=== PATIENT | female | born 1985 | race Caucasian/White ===

== ENCOUNTER 2020-11-25 04:26 | Inpatient (IN) | payer BC ==
[2020-11-25] MEDS ORDERED: Betamethasone Acetate/Betamethasone Sod Phosphate 30 MG/5 ML MDV ONE (05:53)
[2020-11-25] MEDS ORDERED: Citric Acid/Sodium Citrate Solution 30 ML Cup PO ONE (05:54)
[2020-11-25] MEDS ORDERED: Sodium Chloride 0.9% 10 ML Syringe FLUSH PRN (05:54)
[2020-11-25] MEDS ORDERED: Metoclopramide 10 MG/2 ML SDV IVPUSH ONE (05:54)
[2020-11-25] MEDS: Lactated Ringers 1,000 ML IV SCH ×2 (06:00→09:49)
[2020-11-25] MEDS ORDERED: Citric Acid/Sodium Citrate Solution 30 ML Cup ONE (06:01)
[2020-11-25] MEDS ORDERED: Metoclopramide 10 MG/2 ML SDV ONE (06:01)
[2020-11-25] MEDS ORDERED: Bupivacaine 0.5% 30 ML SDV ONE (06:04)
--- NOTE | 2020-11-25 06:08 | PCM.PREANE ---
Preanesthetic Assessment - Procedure Proposed Procedure: - Anesthesia/Transfusion/Family Hx Anesthesia History: No Prior Anesthesia Family History of Anesthesia Reaction: No Transfusion History: No Prior Transfusion(s) Intubation History: Unknown - Review of Systems General: No Symptoms Pulmonary: No Symptoms Cardiovascular: No Symptoms Gastrointestinal: No Symptoms Neurological: No Symptoms Other: Reports: None - Physical Assessment NPO Status Date: 11/24/20 NPO Status Time: 20:00 Vital Signs: 133/70 HR 120 RR 18 99.7 99% Height: 1.7 m Weight: 129.727 kg ASA Class: 3E Mental Status: Alert & Oriented x3 Dentition: Reports: Normal Dentition, Caries Thyro-Mental Finger Breadths: 3 Mouth Opening Finger Breadths: 3 ROM/Head Extension: Full Lungs: Clear to Auscultation, Normal Respiratory Effort Cardiovascular: Regular Rate, Regular Rhythm - Allergies Allergies/Adverse Reactions: Allergies Allergy/AdvReac Type Severity Reaction Status Date / Time amoxicillin Allergy Anaphylactic Verified 11/25/20 06:01 Shock - Blood Blood Available: Yes Product(s) Available: PRBC - Anesthesia Plan Pre-Op Medication Ordered: Other - Acknowledgements Anesthesia Type Planned: General Anesthesia Pt an Appropriate Candidate for the Planned Anesthesia: Yes Alternatives and Risks of Anesthesia Discussed w Pt/Guardian: Yes Pt/Guardian Understands and Agrees with Anesthesia Plan: Yes PreAnesthesia Questionnaire HEENT History: Reports: Impaired Vision Cardiovascular History: Reports: None Respiratory History: Reports: None Gastrointestinal History: Reports: GERD Genitourinary History: Reports: None 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: Neurological History: Reports: None Psychiatric History: Reports: None Endocrine/Metabolic History: Reports: Diabetes, Type II, Obesity/BMI 30+ Other Endocrine/Metabolic History: Patient placed on metformin Immunologic History: Reports: None Oncologic (Cancer) History: Reports: None Dermatologic History: Reports: None - Infectious Disease History Infectious Disease History: Reports: None - SUBSTANCE USE Tobacco Use Status *Q: Former Tobacco User Tobacco Use Within Last Twelve Months: No Second Hand Smoke Exposure: No Days Per Week of Alcohol Use: 0 Number of Drinks Per Day: 0 Total Drinks Per Week: 0 Recreational Drug Use History: No - CURRENT (IN HOUSE) MEDS Current Meds: Current Medications Citric Acid/Sodium Citrate (Citric Acid/Sodium Citrate Solution 30 Ml Cup) 30 ml PO ONETIME ONE Stop: 11/25/20 05:55 Lactated Ringer's (Ringers, Lactated) 1,000 mls @ 125 mls/hr IV ASDIRECTED RICH Metoclopramide HCl (Metoclopramide 10 Mg/2 Ml Sdv) 10 mg IVPUSH ONETIME ONE Stop: 11/25/20 05:55 Sodium Chloride (Sodium Chloride 0.9% 10 Ml Syringe) 10 ml FLUSH ASDIRECTED PRN PRN Reason: Keep Vein Open Discontinued Medications Betamethasone Acet/Betameth SodPhos (Betamethasone Acetate/Betamethasone Sod Phosphate 30 Mg/5 Ml Mdv) Confirm Administered Dose 30 mg .ROUTE .STK-MED ONE Stop: 11/25/20 05:54
--- NOTE | 2020-11-25 06:13 | PCM.LDHP ---
L&D History of Present Illness - General Date of Service: 11/25/20 Admit Problem/Dx: Patient Status Order with Admit Dx/Problem 11/25/20 04:40 Patient Status [ADT] Routine Admission Diagnosis/Problem Admission Diagnosis/Problem Vaginal bleeding during , antepartum Source of Information: Patient History Limitations: Reports: No Limitations - History of Present Illness Introduction:: 34 year old female here with advanced cervical dilation and twins. PNC with [facility] without complications other than twins, obesity and elevated one hour with normal three hour. Timing/Duration: Reports: seconds: - Related Data Allergies/Adverse Reactions: Allergies Allergy/AdvReac Type Severity Reaction Status Date / Time amoxicillin Allergy Anaphylactic Verified 11/25/20 06:01 Shock Past Medical History - Past Health History Medical/Surgical History: Denies Medical/Surgical History H&P Review of Systems - Review of Systems: Review Of Systems: See Below General: Reports: No Symptoms HEENT: Reports: No Symptoms Pulmonary: Reports: No Symptoms Cardiovascular: Reports: No Symptoms Gastrointestinal: Reports: No Symptoms Genitourinary: Reports: No Symptoms Musculoskeletal: Reports: No Symptoms Skin: Reports: No Symptoms Psychiatric: Reports: No Symptoms Neurological: Reports: No Symptoms Hematologic/Lymphatic: Reports: No Symptoms Immunologic: Reports: No Symptoms L&D Exam - Exam Exam: See Below - Vital Signs Weight: 129.727 kg - OB Specific Contraction Intensity: Irritability Movement: Active Heart Tones: Present Heart Rate (FHR) Variability: Moderate (6-25 bpm) Presentation: transverse - Exam General: Alert, Oriented HEENT: PERRLA, Conjunctiva Clear, EACs Clear, EOMI, Hearing Intact, Mucosa Moist & [place], Nares Patent, Normal Nasal Septum, Posterior Pharynx Clear, TMs Clear Neck: Supple, Trachea Midline Lungs: Clear to Auscultation, Normal Respiratory Effort Cardiovascular: Regular Rate, Regular Rhythm Rectal Exam: Normal Exam Genitourinary: Normal speculum exam (on speculum exam bulging bag of water with midportion (transverse) visable through bag) Back Exam: Normal Inspection, Full Range of Motion Extremities: Normal Inspection, Normal Range of Motion, Non-Tender, No Pedal Edema, Normal Capillary Refill Skin: Warm, Dry, Intact Neurological: Cranial Nerves Intact, Reflexes Equal Bilateral Psychiatric: Alert, Normal Affect, Normal Mood Problem List Initiated/Reviewed/Updated: Yes Orders Last 24hrs: Active Orders 24 hr Category Date Time Status Patient Status [ADT] Routine ADT 11/25/20 04:40 Active Communication Order [RC] ROUTINE Care 11/25/20 05:55 Ordered Heart Tones [RC] PER UNIT ROUTINE Care 11/25/20 05:55 Ordered Non Stress Test [RC] PER UNIT ROUTINE Care 11/25/20 04:40 Active Non Stress Test [RC] PER UNIT ROUTINE Care 11/25/20 05:55 Ordered Peripheral IV Care [RC] . DIRECTED Care 11/25/20 05:56 Ordered Procedure Site Prep Instruct [RC] ASDIRECTED Care 11/25/20 05:55 Ordered Verify Patient Consent Obtain [RC] PER UNIT ROUTINE Care 11/25/20 05:55 Ordered Vital Signs [RC] PER UNIT ROUTINE Care 11/25/20 04:40 Active Vital Signs [RC] PFP Care 11/25/20 05:55 Ordered CBC W/O DIFF,HEMOGRAM [HEME] Stat Lab 11/25/20 05:54 Ordered CORONAVIRUS COVID-19 LILY [MOLEC] Stat Lab 11/25/20 05:58 Ordered DRUG SCREEN, URINE [URCHEM] Stat Lab 11/25/20 05:54 Ordered RAPID PLASMA REAGIN,RPR [CHEM] Routine Lab 11/25/20 05:55 Ordered TYPE AND SCREEN [BBK] Routine Lab 11/25/20 05:55 Ordered Lactated Ringers @ 125 MLS/HR(1000ml) Med 11/25/20 06:00 Ordered Lactated Ringers [Ringers, Lactated] 1,000 ml IV ASDIRECTED Sodium Chloride 0.9% [Saline Flush] Med 11/25/20 05:54 Ordered 10 ml FLUSH ASDIRECTED PRN Peripheral IV Insertion Adult [OM.PC] Routine Oth 11/25/20 05:55 Ordered Schedule Procedure [COMM] Per Unit Routine Oth 11/25/20 05:55 Ordered Resuscitation Status Routine Resus Stat 11/25/20 04:40 Ordered Medication Orders Lactated Ringer's (Ringers, Lactated) 1,000 mls @ 125 mls/hr IV ASDIRECTED RICH Sodium Chloride (Sodium Chloride 0.9% 10 Ml Syringe) 10 ml FLUSH ASDIRECTED PRN PRN Reason: Keep Vein Open Assessment/Plan Comment:: labor. GBS collected. Covid pending Labs pending. Proceed with for malpresentation. RBA discussed with patient who voices understanding. INitially want transport but discussed with them and actually called at their request to speak with [facility] who refused to accept transport as I had expected.
[2020-11-25] MEDS ORDERED: Betamethasone Acetate/Betamethasone Sod Phosphate 30 MG/5 ML MDV IM ONE (06:16)
[2020-11-25] MEDS ORDERED: Propofol 200 MG/20 ML SDV ONE (06:20)
[2020-11-25] MEDS ORDERED: Succinylcholine/Sod PF 100 MG/5 ML SYRINGE IV ONE (06:21)
[2020-11-25] MEDS ORDERED: ceFAZolin 1 GM Vial ONE ×2 (06:31→06:33)
[2020-11-25] MEDS ORDERED: fentaNYL 250 MCG/5 ML SDV ONE (06:38)
[2020-11-25] MEDS ORDERED: Albuterol 6.7 GM Inhaler INH ONE (06:45)
[2020-11-25] MEDS ORDERED: Ondansetron 4 MG/2 ML SDV ONE (06:45)
[2020-11-25] MEDS ORDERED: Oxytocin 10 Units/1 ML SDV ONE (06:46)
[2020-11-25] MEDS ORDERED: HYDROmorphone 0.5 MG/0.5 ML Syringe ONE (06:48)
[2020-11-25] MEDS ORDERED: Lactated Ringers 1,000 ML ONE (06:55)
[2020-11-25] MEDS ORDERED: Lactated Ringers 500 ML ONE (06:55)
[2020-11-25] MEDS ORDERED: Ketorolac 30 MG/ML SDV ONE (07:03)
[2020-11-25] MEDS ORDERED: fentaNYL 100 MCG/2 ML SDV ONE (07:14)
[2020-11-25] MEDS ORDERED: HYDROmorphone 0.5 MG/0.5 ML Syringe IVPUSH PRN (07:29)
[2020-11-25] MEDS ORDERED: fentaNYL 100 MCG/2 ML SDV IVPUSH PRN (07:29)
[2020-11-25] MEDS ORDERED: Ondansetron 4 MG/2 ML SDV IVPUSH PRN (07:29)
--- NOTE | 2020-11-25 07:31 | PCM.POSTAN ---
POST ANESTHESIA ASSESSMENT - MENTAL STATUS Mental Status: Alert, Oriented - RESPIRATORY Respiratory Status: Respiratory Rate WNL, Airway Patent, O2 Saturation Stable, Supplemental Oxygen - CARDIOVASCULAR CV Status: Pulse Rate WNL, Blood Pressure Stable - GASTROINTESTINAL GI Status: No Symptoms - PAIN Pain Score: 5 - POST OP HYDRATION Hydration Status: Adequate & Stable
[2020-11-25] MEDS ORDERED: ePHEDrine 50 MG/ML SDV IVPUSH PRN (08:52)
[2020-11-25] MEDS ORDERED: diphenhydrAMINE 50 MG/ML SDV IVPUSH PRN (08:52)
[2020-11-25] MEDS ORDERED: Dextrose 5%-Lactated Ringers 1,000 ML IV SCH (08:52)
[2020-11-25] MEDS ORDERED: Naloxone 0.4 MG/ML SDV IVPUSH PRN (08:52)
[2020-11-25] MEDS: Acetaminophen/oxyCODONE 325-5 MG Tab PO PRN ×3 (10:59→21:37)
[2020-11-25] MEDS: Ibuprofen 600 MG Tab PO PRN ×2 (13:35→20:15)
[2020-11-26] MEDS: Ibuprofen 600 MG Tab PO PRN ×3 (03:38→21:31)
[2020-11-26] MEDS: Acetaminophen/oxyCODONE 325-5 MG Tab PO PRN ×4 (06:05→23:51)
[2020-11-26] MEDS: Docusate Sodium 100 MG Cap PO PRN ×2 (10:54→23:51)
--- NOTE | 2020-11-26 11:34 | PCM.SN.2 ---
- Free Text/Narrative Note: Post Operative Progress Note POD #1 Subjective: Doing well overall. Ambulating slowly without difficulty. Reports that she does have increased amounts of pain with activity. Lochia minimal. Angel catheter was removed this morning and she has been able to urinate without difficulty. She reports that she is having some bladder spasms and will void small amounts when she does use the restroom. Passing flatus and feels rectal pressure like she has to have a bowel movement but is unable to pass any stool. Tolerating small amounts of regular diet without nausea or vomiting. She states that food does not seem appetizing at this time. Pain controlled with oral medications. Pumping small amounts of breastmilk with minimal difficulty. She states that the infants are doing well in the NICU in [place] and that they are progressing Objective: Vitals: Vital Signs - 24 hr 11/25/20 11/25/20 11/25/20 13:37 15:42 20:21 Temperature 37.1 C 36.9 C 36.8 C Pulse, 107 H 96 104 H Peripheral Respiratory 16 16 Rate Blood Pressure 106/60 114/66 112/77 O2 Sat by Pulse 95 95 93 L Oximetry 11/25/20 11/26/20 23:12 03:40 Temperature 36.8 C 36.8 C Pulse, 89 96 Peripheral Respiratory 14 15 Rate Blood Pressure 125/65 125/67 O2 Sat by Pulse 93 L 92 L Oximetry Physical Exam General: Alert and oriented, no acute distress Lungs: Clear to auscultation bilaterally Heart: Regular rate and rhythm Abdomen: Soft, minimal appropriate tenderness, non-distended, fundus midline, nontender and at the umbilicus Incision: Clean, dry and intact, no erythema, bleeding or drainage with Steri- Strips in place Extremities: Trace edema in bilateral lower extremities to ankles, no calf tenderness bilaterally Labs: Laboratory Results - last 24 hr 11/25/20 11/26/20 Range/Units 06:08 05:31 WBC 10.57 H (3.98-10.04) K/mm3 RBC 2.92 L (3.98-5.22) M/mm3 Hgb 8.7 L D (11.2-15.7) gm/dl Hct 28.0 L (34.1-44.9) % MCV 95.9 H (79.4-94.8) fl MCH 29.8 (25.6-32.2) pg MCHC 31.1 L (32.2-35.5) g/dl RDW Std Deviation 48.9 H (36.4-46.3) fL Plt Count 226 (182-369) K/mm3 MPV 9.7 (9.4-12.3) fl Neut % (Auto) 71.7 H (34.0-71.1) % Lymph % (Auto) 20.9 (19.3-51.7) % [place] % (Auto) 6.8 (4.7-12.5) % Eos % (Auto) 0.3 L (0.7-5.8) Baso % (Auto) 0.1 (0.1-1.2) % Neut # (Auto) 7.58 H (1.56-6.13) K/mm3 Lymph # (Auto) 2.21 (1.18-3.74) K/mm3 [place] # (Auto) 0.72 H (0.24-0.36) K/mm3 Eos # (Auto) 0.03 L (0.04-0.36) K/mm3 Baso # (Auto) 0.01 (0.01-0.08) K/mm3 RPR Non-reactive (NONREACTIVE) ASSESSMENT: 34-year-old female -1-0-4 s/p primary section POD #1 for transverse presentation of presenting twin, complicated by labor at 29 weeks gestational age, obesity and elevated 1 hour glucose tolerance test with normal 3-hour glucose tolerance test PLAN: Doing well overall Pumping breastmilk with minimal production of breastmilk at this time. Assist as needed Incision healing well. Continue to keep clean and dry. Lochia minimal. Continue to monitor for appropriate lochia. Continue routine post-operative care Start Colace 100 mg twice daily to help with constipation Monitor urinary symptoms due to bladder spasms. Suspect that this is due to irritation from the Angel catheter being in place No significant evidence of severe anemia due to acute blood loss from section. Patient has hemoglobin of 8.7 this morning and is tolerating this well Anticipate discharge home tomorrow Fito Cruz MD 11:33 AM 11/26/2020
[2020-11-27] MEDS: Acetaminophen/oxyCODONE 325-5 MG Tab PO PRN ×4 (06:04→22:53)
[2020-11-27] MEDS: Ibuprofen 600 MG Tab PO PRN ×2 (13:31→20:35)
[2020-11-27] MEDS: Docusate Sodium 100 MG Cap PO PRN (20:35)
[2020-11-28] MEDS: Ibuprofen 600 MG Tab PO PRN ×2 (05:16→11:50)
--- NOTE | 2020-11-28 08:47 | PCM.PNPP ---
- General Info Date of Service: 11/27/20 Subjective Update: Doing well. Urinary retention over yesterday. Will remove matt this am and see if can void Functional Status: Reports: Pain Controlled - Review of Systems General: Reports: No Symptoms HEENT: Reports: No Symptoms Pulmonary: Reports: No Symptoms Cardiovascular: Reports: No Symptoms Gastrointestinal: Reports: No Symptoms Genitourinary: Reports: No Symptoms Musculoskeletal: Reports: No Symptoms Skin: Reports: No Symptoms Neurological: Reports: No Symptoms Psychiatric: Reports: No Symptoms - General Info Date of Service: 11/27/20 - Patient Data Vital Signs - Most Recent: Last Vital Signs Temp 36.7 C 11/28/20 05:03 Pulse 74 11/28/20 05:03 Resp 16 11/28/20 05:03 BP 107/58 L 11/28/20 05:03 Pulse Ox 97 11/28/20 05:03 Weight - Most Recent: 129.727 kg I&O - Last 24 Hours: Intake & Output 11/27/20 11/28/20 11/28/20 22:59 06:59 14:59 Output Total 100 300 Balance -100 -300 Med Orders - Current: Current Medications Diphenhydramine HCl (Diphenhydramine 50 Mg/Ml Sdv) 25 mg IVPUSH Q6H PRN PRN Reason: Itching or Nausea Docusate Sodium (Docusate Sodium 100 Mg Cap) 100 mg PO BID PRN PRN Reason: Constipation Last Admin: 11/27/20 20:35 Dose: 100 mg Documented by: Ephedrine Sulfate (Ephedrine 50 Mg/Ml Sdv) 5 mg IVPUSH SEECOMMENT PRN PRN Reason: Other Ibuprofen (Ibuprofen 600 Mg Tab) 600 mg PO Q6H PRN PRN Reason: mild pain or fever Last Admin: 11/28/20 05:16 Dose: 600 mg Documented by: Naloxone HCl (Naloxone 0.4 Mg/Ml Sdv) 0.1 mg IVPUSH SEECOMMENT PRN PRN Reason: Respiratory Depression Oxycodone/Acetaminophen (Acetaminophen/Oxycodone 325-5 Mg Tab) 1 tab PO Q4H PRN PRN Reason: Pain (moderate 4-6) Last Admin: 11/27/20 22:53 Dose: 1 tab Documented by: Oxycodone/Acetaminophen (Acetaminophen/Oxycodone 325-5 Mg Tab) 2 tab PO Q4H PRN PRN Reason: Pain (severe 7-10) Last Admin: 11/26/20 17:44 Dose: 2 tab Documented by: Discontinued Medications Albuterol (Albuterol 6.7 Gm Inhaler) Confirm Administered Dose 6.7 gm INH .STK- MED ONE Stop: 11/25/20 06:46 Betamethasone Acet/Betameth SodPhos (Betamethasone Acetate/Betamethasone Sod Phosphate 30 Mg/5 Ml Mdv) Confirm Administered Dose 30 mg .ROUTE .STK-MED ONE Stop: 11/25/20 05:54 Last Admin: 11/25/20 06:10 Dose: 12 mg Documented by: Betamethasone Acet/Betameth SodPhos (Betamethasone Acetate/Betamethasone Sod Phosphate 30 Mg/5 Ml Mdv) 12 mg IM ONETIME ONE Stop: 11/25/20 06:17 Last Admin: 11/25/20 09:11 Dose: Not Given Documented by: Bupivacaine HCl (Bupivacaine 0.5% 30 Ml Sdv) Confirm Administered Dose 30 ml .ROUTE .STK-MED ONE Stop: 11/25/20 06:05 Cefazolin Sodium (Cefazolin 1 Gm Vial) Confirm Administered Dose 2 gm .ROUTE .STK-MED ONE Stop: 11/25/20 06:32 Cefazolin Sodium (Cefazolin 1 Gm Vial) Confirm Administered Dose 1 gm .ROUTE .STK-MED ONE Stop: 11/25/20 06:34 Citric Acid/Sodium Citrate (Citric Acid/Sodium Citrate Solution 30 Ml Cup) 30 ml PO ONETIME ONE Stop: 11/25/20 05:55 Last Admin: 11/25/20 06:09 Dose: 30 ml Documented by: Citric Acid/Sodium Citrate (Citric Acid/Sodium Citrate Solution 30 Ml Cup) Confirm Administered Dose 30 ml .ROUTE .STK-MED ONE Stop: 11/25/20 06:02 Last Admin: 11/25/20 06:10 Dose: Not Given Documented by: Fentanyl (Fentanyl 250 Mcg/5 Ml Sdv) Confirm Administered Dose 250 mcg .ROUTE .STK-MED ONE Stop: 11/25/20 06:39 Fentanyl (Fentanyl 100 Mcg/2 Ml Sdv) Confirm Administered Dose 100 mcg .ROUTE .STK-MED ONE Stop: 11/25/20 07:15 Fentanyl (Fentanyl 100 Mcg/2 Ml Sdv) 50 mcg IVPUSH Q5M PRN PRN Reason: Pain Stop: 11/25/20 12:00 Hydromorphone HCl (Hydromorphone 0.5 Mg/0.5 Ml Syringe) Confirm Administered Dose 0.5 mg .ROUTE .STK-MED ONE Stop: 11/25/20 06:49 Hydromorphone HCl (Hydromorphone 0.5 Mg/0.5 Ml Syringe) 0.5 mg IVPUSH Q10M PRN PRN Reason: Pain (severe 7-10) Stop: 11/25/20 12:00 Last Admin: 11/25/20 07:54 Dose: 0.5 mg Documented by: Lactated Ringer's (Ringers, Lactated) 1,000 mls @ 125 mls/hr IV ASDIRECTED [facility] Last Admin: 11/25/20 09:49 Dose: 125 mls/hr Documented by: Lactated Ringer's (Ringers, Lactated) Confirm Administered Dose 1,000 mls @ as directed .ROUTE .STK-MED ONE Stop: 11/25/20 06:56 Lactated Ringer's (Ringers, Lactated) Confirm Administered Dose 500 mls @ as directed .ROUTE .STK-MED ONE Stop: 11/25/20 06:56 Dextrose/Lactated Ringer's (Dextrose 5%-Lactated Ringers) 1,000 mls @ 125 mls/hr IV ASDIRECTED [facility] Stop: 11/25/20 16:51 Ketorolac Tromethamine (Ketorolac 30 Mg/Ml Sdv) Confirm Administered Dose 30 mg .ROUTE .STK-MED ONE Stop: 11/25/20 07:04 Metoclopramide HCl (Metoclopramide 10 Mg/2 Ml Sdv) 10 mg IVPUSH ONETIME ONE Stop: 11/25/20 05:55 Last Admin: 11/25/20 06:09 Dose: 10 mg Documented by: Metoclopramide HCl (Metoclopramide 10 Mg/2 Ml Sdv) Confirm Administered Dose 10 mg .ROUTE .STK-MED ONE Stop: 11/25/20 06:02 Last Admin: 11/25/20 06:11 Dose: Not Given Documented by: Miscellaneous Medication (Phenylephrine Hcl In 0.9% Nacl 1 Mg/10 Ml Syringe) Confirm Administered Dose 1 mg .ROUTE .STK-MED ONE Stop: 11/25/20 06:52 Ondansetron HCl (Ondansetron 4 Mg/2 Ml Sdv) Confirm Administered Dose 4 mg .ROUTE .STK-MED ONE Stop: 11/25/20 06:46 Ondansetron HCl (Ondansetron 4 Mg/2 Ml Sdv) 4 mg IVPUSH ONETIME PRN PRN Reason: Nausea/Vomiting Stop: 11/25/20 12:00 Oxytocin (Oxytocin 10 Units/1 Ml Sdv) Confirm Administered Dose 10 unit .ROUTE .STK-MED ONE Stop: 11/25/20 06:47 Propofol (Propofol 200 Mg/20 Ml Sdv) Confirm Administered Dose 200 mg .ROUTE .STK-MED ONE Stop: 11/25/20 06:21 Sodium Chloride (Sodium Chloride 0.9% 10 Ml Syringe) 10 ml FLUSH ASDIRECTED PRN PRN Reason: Keep Vein Open - Interaction Support Person: - Recovery Exam Fundal Tone: Firm Fundal Level: 1 Fingerbreadths Below Umbilicus Fundal Placement: Midline Lochia Amount: Small Lochia Color: Rubra/Red Perineum Description: Intact, Minimal Bruising/Swelling Episiotomy/Laceration: None Bladder Status: Voiding Urinary Elimination: Indwelling Catheter - Exam General: Alert, Oriented HEENT: Pupils Equal Neck: Supple Lungs: Clear to Auscultation, Normal Respiratory Effort Cardiovascular: Regular Rate, Regular Rhythm GI/Abdominal Exam: Normal Bowel Sounds, Soft, Non-Tender, No Organomegaly, No Distention, No Abnormal Bruit, No Mass, Pelvis Stable Skin: Warm, Dry Neurological: No New Focal Deficit Psy/Mental Status: Alert, Normal Affect, Normal Mood - Problem List Review Problem List Initiated/Reviewed/Updated: Yes - My Orders Last 24 Hours: My Active Orders 11/27/20 10:18 Ready for Discharge [RC] PER UNIT ROUTINE 11/27/20 19:42 Urinary Catheter Assessment [RC] ASDIRECTED 11/27/20 19:45 Insert Urinary Catheter [OM.PC] Q24H - Assessment Assessment:: 1) Postop from for 29 week twins - doing well 2) urinary retention - matt in, removed for void trial and had 500+ so reinsert ed, trial again today.
--- NOTE | 2020-11-28 08:55 | PCM.DCSUM1 ---
Discharge Summary - Hospital Course Brief History: Admitted with advanced cervical dilation Diagnosis: Stroke: No - Discharge Data Discharge Date: 11/28/20 Discharge Disposition: Home, Self-Care 01 Condition: Good - Referral to Home Health Primary Care Physician: Mckinley Escobar MD - Patient Summary/Data Hospital Course: Admitted for for labor. Urinary retention. - Patient Instructions Diet: Usual Diet as Tolerated Activity: No Strenuous Activities Driving: May Drive Today Showering/Bathing: May Shower Notify Provider of: Fever, Increased Pain, Swelling and Redness, Drainage, Nausea and/or Vomiting - Discharge Plan *PRESCRIPTION DRUG MONITORING PROGRAM REVIEWED*: No *COPY OF PRESCRIPTION DRUG MONITORING REPORT IN PATIENT SHANNON: No Referrals: Mckinley Escobar MD [Primary Care Provider] - (Monday-Mon for void trial please) - Discharge Summary/Plan Comment DC Time >30 min.: No Total # of Minutes for Discharge Time: 29 - General Info Date of Service: 11/28/20 Functional Status: Reports: Pain Controlled - Review of Systems General: Reports: No Symptoms HEENT: Reports: No Symptoms Pulmonary: Reports: No Symptoms Cardiovascular: Reports: No Symptoms Gastrointestinal: Reports: No Symptoms Genitourinary: Reports: No Symptoms Musculoskeletal: Reports: No Symptoms Skin: Reports: No Symptoms Neurological: Reports: No Symptoms Psychiatric: Reports: No Symptoms - Patient Data Vitals - Most Recent: Last Vital Signs Temp 36.7 C 11/28/20 05:03 Pulse 74 11/28/20 05:03 Resp 16 11/28/20 05:03 BP 107/58 L 11/28/20 05:03 Pulse Ox 97 11/28/20 05:03 Weight - Most Recent: 129.727 kg I&O - Last 24 hours: Intake & Output 11/27/20 11/28/20 11/28/20 22:59 06:59 14:59 Output Total 100 300 Balance -100 -300 Med Orders - Current: Current Medications Diphenhydramine HCl (Diphenhydramine 50 Mg/Ml Sdv) 25 mg IVPUSH Q6H PRN PRN Reason: Itching or Nausea Docusate Sodium (Docusate Sodium 100 Mg Cap) 100 mg PO BID PRN PRN Reason: Constipation Last Admin: 11/27/20 20:35 Dose: 100 mg Documented by: Ephedrine Sulfate (Ephedrine 50 Mg/Ml Sdv) 5 mg IVPUSH SEECOMMENT PRN PRN Reason: Other Ibuprofen (Ibuprofen 600 Mg Tab) 600 mg PO Q6H PRN PRN Reason: mild pain or fever Last Admin: 11/28/20 05:16 Dose: 600 mg Documented by: Naloxone HCl (Naloxone 0.4 Mg/Ml Sdv) 0.1 mg IVPUSH SEECOMMENT PRN PRN Reason: Respiratory Depression Oxycodone/Acetaminophen (Acetaminophen/Oxycodone 325-5 Mg Tab) 1 tab PO Q4H PRN PRN Reason: Pain (moderate 4-6) Last Admin: 11/27/20 22:53 Dose: 1 tab Documented by: Oxycodone/Acetaminophen (Acetaminophen/Oxycodone 325-5 Mg Tab) 2 tab PO Q4H PRN PRN Reason: Pain (severe 7-10) Last Admin: 11/26/20 17:44 Dose: 2 tab Documented by: Discontinued Medications Albuterol (Albuterol 6.7 Gm Inhaler) Confirm Administered Dose 6.7 gm INH .STK- MED ONE Stop: 11/25/20 06:46 Betamethasone Acet/Betameth SodPhos (Betamethasone Acetate/Betamethasone Sod Phosphate 30 Mg/5 Ml Mdv) Confirm Administered Dose 30 mg .ROUTE .STK-MED ONE Stop: 11/25/20 05:54 Last Admin: 11/25/20 06:10 Dose: 12 mg Documented by: Betamethasone Acet/Betameth SodPhos (Betamethasone Acetate/Betamethasone Sod Phosphate 30 Mg/5 Ml Mdv) 12 mg IM ONETIME ONE Stop: 11/25/20 06:17 Last Admin: 11/25/20 09:11 Dose: Not Given Documented by: Bupivacaine HCl (Bupivacaine 0.5% 30 Ml Sdv) Confirm Administered Dose 30 ml .ROUTE .STK-MED ONE Stop: 11/25/20 06:05 Cefazolin Sodium (Cefazolin 1 Gm Vial) Confirm Administered Dose 2 gm .ROUTE .STK-MED ONE Stop: 11/25/20 06:32 Cefazolin Sodium (Cefazolin 1 Gm Vial) Confirm Administered Dose 1 gm .ROUTE .STK-MED ONE Stop: 11/25/20 06:34 Citric Acid/Sodium Citrate (Citric Acid/Sodium Citrate Solution 30 Ml Cup) 30 ml PO ONETIME ONE Stop: 11/25/20 05:55 Last Admin: 11/25/20 06:09 Dose: 30 ml Documented by: Citric Acid/Sodium Citrate (Citric Acid/Sodium Citrate Solution 30 Ml Cup) Confirm Administered Dose 30 ml .ROUTE .STK-MED ONE Stop: 11/25/20 06:02 Last Admin: 11/25/20 06:10 Dose: Not Given Documented by: Fentanyl (Fentanyl 250 Mcg/5 Ml Sdv) Confirm Administered Dose 250 mcg .ROUTE .STK-MED ONE Stop: 11/25/20 06:39 Fentanyl (Fentanyl 100 Mcg/2 Ml Sdv) Confirm Administered Dose 100 mcg .ROUTE .STK-MED ONE Stop: 11/25/20 07:15 Fentanyl (Fentanyl 100 Mcg/2 Ml Sdv) 50 mcg IVPUSH Q5M PRN PRN Reason: Pain Stop: 11/25/20 12:00 Hydromorphone HCl (Hydromorphone 0.5 Mg/0.5 Ml Syringe) Confirm Administered Dose 0.5 mg .ROUTE .STK-MED ONE Stop: 11/25/20 06:49 Hydromorphone HCl (Hydromorphone 0.5 Mg/0.5 Ml Syringe) 0.5 mg IVPUSH Q10M PRN PRN Reason: Pain (severe 7-10) Stop: 11/25/20 12:00 Last Admin: 11/25/20 07:54 Dose: 0.5 mg Documented by: Lactated Ringer's (Ringers, Lactated) 1,000 mls @ 125 mls/hr IV ASDIRECTED REPLACED BY [facility] Last Admin: 11/25/20 09:49 Dose: 125 mls/hr Documented by: Lactated Ringer's (Ringers, Lactated) Confirm Administered Dose 1,000 mls @ as directed .ROUTE .STK-MED ONE Stop: 11/25/20 06:56 Lactated Ringer's (Ringers, Lactated) Confirm Administered Dose 500 mls @ as directed .ROUTE .STK-MED ONE Stop: 11/25/20 06:56 Dextrose/Lactated Ringer's (Dextrose 5%-Lactated Ringers) 1,000 mls @ 125 mls/hr IV ASDIRECTED REPLACED BY [facility] Stop: 11/25/20 16:51 Ketorolac Tromethamine (Ketorolac 30 Mg/Ml Sdv) Confirm Administered Dose 30 mg .ROUTE .STK-MED ONE Stop: 11/25/20 07:04 Metoclopramide HCl (Metoclopramide 10 Mg/2 Ml Sdv) 10 mg IVPUSH ONETIME ONE Stop: 11/25/20 05:55 Last Admin: 11/25/20 06:09 Dose: 10 mg Documented by: Metoclopramide HCl (Metoclopramide 10 Mg/2 Ml Sdv) Confirm Administered Dose 10 mg .ROUTE .STK-MED ONE Stop: 11/25/20 06:02 Last Admin: 11/25/20 06:11 Dose: Not Given Documented by: Miscellaneous Medication (Phenylephrine Hcl In 0.9% Nacl 1 Mg/10 Ml Syringe) Confirm Administered Dose 1 mg .ROUTE .STK-MED ONE Stop: 11/25/20 06:52 Ondansetron HCl (Ondansetron 4 Mg/2 Ml Sdv) Confirm Administered Dose 4 mg .ROUTE .STK-MED ONE Stop: 11/25/20 06:46 Ondansetron HCl (Ondansetron 4 Mg/2 Ml Sdv) 4 mg IVPUSH ONETIME PRN PRN Reason: Nausea/Vomiting Stop: 11/25/20 12:00 Oxytocin (Oxytocin 10 Units/1 Ml Sdv) Confirm Administered Dose 10 unit .ROUTE .STK-MED ONE Stop: 11/25/20 06:47 Propofol (Propofol 200 Mg/20 Ml Sdv) Confirm Administered Dose 200 mg .ROUTE .STK-MED ONE Stop: 11/25/20 06:21 Sodium Chloride (Sodium Chloride 0.9% 10 Ml Syringe) 10 ml FLUSH ASDIRECTED PRN PRN Reason: Keep Vein Open - Exam General: Reports: Alert, Oriented HEENT: Reports: Pupils Equal, Pupils Reactive, EOMI, Mucous Membr. Moist/[place] Neck: Reports: Supple Lungs: Reports: Clear to Auscultation, Normal Respiratory Effort Cardiovascular: Reports: Regular Rate, Regular Rhythm GI/Abdominal Exam: Normal Bowel Sounds, Soft, Non-Tender, No Organomegaly, No Distention, No Abnormal Bruit, No Mass, Pelvis Stable Rectal (Female) Exam: Normal Exam Back Exam: Reports: Normal Inspection, Full Range of Motion Extremities: Normal Inspection, Normal Range of Motion, Non-Tender, No Pedal Edema, Normal Capillary Refill Skin: Reports: Warm, Dry, Intact Wound/Incisions: Reports: Healing Well Neurological: Reports: No New Focal Deficit Psy/Mental Status: Reports: Alert, Normal Affect, Normal Mood
[2020-11-28] MEDS ORDERED: Polyethylene Glycol 3350 Powder 17 GM Packet PO ONE (09:19)
[2020-11-28] MEDS: Acetaminophen/oxyCODONE 325-5 MG Tab PO PRN (10:21)
[2020-11-28] MEDS ORDERED: Measles, Mumps & Rubella Vaccine 0.5 ML SDV SUBCUT ONE (10:59)
--- NOTE | 2020-12-17 14:39 | PCM.OPNOTE ---
- General Post-Op/Procedure Note Date of Surgery/Procedure: 11/25/20 Operative Procedure(s): primary section Findings: breech twins Pre Op Diagnosis: labor, twins, breech Post-Op Diagnosis: Same Anesthesia Technique: General ET Tube Primary Surgeon: Florencia Barillas Sales Clerk Supervisor: Arthur Jenkins Complications: None Condition: Good Free Text/Narrative:: he patient was taken to the operating room where GETA was initiated. The patient was prepped and draped in the usual sterile fashion in the dorsal supine position with a leftward tilt. A Pfannenstiel skin incision was made with the scalpel and carried through to the underlying layer of fascia. The fascia was incised and entered bluntly. The peritoneum was entered bluntly; this incision was extended superiorly and inferiorly with good visualization of the bladder. The bladder blade was inserted. The vesicouterine peritoneum was identified and entered sharply using Metzenbaum scissors. This incision was extended laterally and the bladder flap was created digitally. The bladder blade was reinserted. The lower uterine segment was incised in a transverse fashion using the scalpel and with digital traction. Clear fluid was noted. The infants were delivered with usual breech maneuvers. The uterus was exteriorized and cleared of all clots and debris. The uterine incision was repaired in 2 layers using 0 monocryl. Hemostasis was visualized. Hemostasis was visualized bilaterally. The uterus was returned to the abdomen. The uterine incision was reexamined and it was noted to be hemostatic. The pelvis was copiously irrigated. The fascia was closed with 1 PDS suture, and the skin was closed with 3-0 monocryl. Sponge, lap, and instrument counts were correct x2. The patient was stable at the completion of the procedure and was subsequently transferred to the recovery room in stable condition.
== END 2020-11-28 12:00 | disposition home or self-care (01) | DRG 540 ==
LOC: JD.OBCHECK 04:26 → JD.OB 04:26 → JD.OBCHECK 06:33
PROVIDERS: ADMIT Obstetrics & Gynecology; ATTEND Obstetrics & Gynecology
PROC: 10D00Z1 Extraction of Products of Conception, Low, Open Approach (ICD-10-PCS; principal; 2020-11-25)
DX: O30.043 Twin pregnancy, dichorionic/diamniotic, third trimester (principal); O60.14X0 Preterm labor third trimester with preterm delivery third trimester, not applicable or unspecified; Z37.2 Twins, both liveborn; O99.62 Diseases of the digestive system complicating childbirth; K59.00 Constipation, unspecified; R33.9 Retention of urine, unspecified; Z20.822 Contact with and (suspected) exposure to COVID-19; Z3A.29 29 weeks gestation of pregnancy; O99.214 Obesity complicating childbirth; O99.892 Other specified diseases and conditions complicating childbirth; Z88.0 Allergy status to penicillin; Z87.891 Personal history of nicotine dependence
CPT/HCPCS: 01961; 36415; 51701; 51702; 51798; 59025; 80306; 85025; 85027; 86592; 86850; 86900; 86901; 90471; 90707; 99140; A9270-GY; J0330; J0690; J0702; J1170; J1885; J2370; J2405; J2590; J2704; J2765; J3010; J3490; J7120; U0002